=== PATIENT | female | born 1985 | race Caucasian/White ===

== ENCOUNTER 2023-01-21 19:06 | Emergency (ER) | payer OTHER, SELFPAY ==
[2023-01-21 19:11] VITALS: BP 135/95; PULSE 90; RESP 16; TEMP 36.7; O2SAT 98; BMI 30.2
--- NOTE | 2023-01-21 19:31 | ED.GENADUL1 ---
HPI - General Adult General Chief complaint: Nausea/Vomiting/Diarrhea Stated complaint: vomiting Time Seen by Provider: 01/21/23 19:20 Source: patient Mode of arrival: walk-in Limitations: no limitations History of Present Illness HPI narrative: patient is a 37-year-old female who presents to the emergency department for the evaluation of epigastric discomfort intermittently over the last six weeks associated with nausea, hot and cold chills and diaphoresis. Patient states she had significant attack last night. She denies any pain in the left or right upper quadrants but points to sharp pain in the epigastrium when this occurs. She had vomiting last night but has not had any vomiting today. She has not had any changes in her urination or bowel movements. She is not concerned for . No fevers or upper respiratory symptoms. She is not able to see her doctor for another three weeks. Related Data Previous Rx's Medication Instructions Recorded ondansetron 4 mg disintegrating 4 mg PO Q6H PRN nausea and 01/21/23 tablet vomiting #12 tabs pantoprazole 40 mg tablet,delayed 40 mg PO DAILY #7 tabs 01/21/23 release (Protonix) potassium chloride 20 mEq 20 meq PO BID #6 tabs 01/21/23 tablet,extended release sucralfate 1 gram tablet (Carafate) 1 g PO Q6H PRN abdominal pain #12 01/21/23 tabs Allergies Allergy/AdvReac Type Severity Reaction Status Date / Time ciprofloxacin [From Cipro] Allergy Unknown Verified 01/21/23 19:19 Review of Systems ROS Constitutional Denies: fever or chills Ears, nose, mouth, and throat Denies: throat pain Cardiovascular Denies: chest pain Respiratory Denies: shortness of breath or cough Gastrointestinal Reports: abdominal pain, nausea and vomiting; Denies: diarrhea Genitourinary Denies: painful urination Musculoskeletal Denies: back pain Integumentary/Breast Denies: rash Neurological Denies: headache Allergic/Immunologic Denies: hives PFSH PFS Social History Smoking status: Current every day smoker Exam Narrative Exam Narrative: Gen.: Awake, alert, in no distress Head: Normocephalic, atraumatic ENT: Moist mucous membranes Respiratory: No respiratory distress, lungs clear bilaterally Cardio: Regular rate and rhythm Gastrointestinal: Abdomen is soft, nondistended and minimally tender in the epigastrium Extremities: Moves extremities equally, no injuries noted Psych: Normal mood and affect Neuro: No focal neuro deficit Skin: Warm, dry, intact Constitutional Vital Signs, click to edit/add: Last Vital Signs Temp 98.0 F 01/21/23 19:11 Pulse 90 01/21/23 19:11 Resp 16 01/21/23 19:11 BP 135/95 H 01/21/23 19:11 Pulse Ox 98 01/21/23 19:11 O2 Del Method Room Air 01/21/23 19:11 Course Vital Signs Vital signs: Vital Signs Temperature 98.0 F 01/21/23 19:11 Pulse Rate 90 01/21/23 19:11 Respiratory Rate 16 01/21/23 19:11 Blood Pressure 135/95 H 01/21/23 19:11 Pulse Oximetry 98 01/21/23 19:11 Oxygen Delivery Method Room Air 01/21/23 19:11 Temperature 98.0 F 01/21/23 19:11 Pulse Rate 90 01/21/23 19:11 Respiratory Rate 16 01/21/23 19:11 Blood Pressure 135/95 H 01/21/23 19:11 Pulse Oximetry 98 01/21/23 19:11 Oxygen Delivery Method Room Air 01/21/23 19:11 Medical Decision Making MDM Narrative Medical decision making narrative: lab studies within normal limits although patient was noted to have a potassium of 2.7. She tolerated oral potassium without difficulty. She will be prescribed potassium for the next three days. The remainder of her labs are unremarkable, vital signs are normal. Abdomen is soft and benign. Ultrasound of the right upper quadrant was performed with no evidence of acute abdominal abnormalities. Patient will be discharged home on Protonix, Carafate, Zofran. Return to the Emergency Room if symptoms change or worsen. Medical Records Medical records reviewed: Yes I reviewed the patient's medical records Lab Data Lab results reviewed: Yes I reviewed the patient's lab results Labs: Lab Results 01/21/23 Range/Units 19:45 WBC 5.5 (4.0-11.0) 10^3/uL RBC 4.34 (4.20-5.40) 10^6/uL Hgb 12.8 (12.0-16.0) g/dL Hct 37.9 (36.0-48.0) % MCV 87.3 (81.0-99.0) fL MCH 29.5 (26.7-34.0) pg MCHC 33.8 (29.9-35.2) g/dL RDW 14.5 (11.0-15.0) % Plt Count 220 (150-450) 10^3/uL MPV 10.3 (9.5-13.5) fL Neut % (Auto) 74.3 (43.0-75.0) % Lymph % (Auto) 16.1 L (20.5-60.0) % Williamson % (Auto) 5.4 (1.7-12.0) % Eos % (Auto) 1.6 (0.9-7.0) % Baso % (Auto) 0.4 (0.2-2.0) % Neut # (Auto) 4.1 (1.4-6.5) 10^3/uL Lymph # (Auto) 0.9 L (1.2-3.8) 10^3/uL Williamson # (Auto) 0.3 (0.3-0.8) 10^3/uL Eos # (Auto) 0.1 (0.0-0.7) 10^3/uL Baso # (Auto) 0.0 (0.0-0.1) 10^3/uL Abs Immat Gran (auto) 0.12 H (0.00-0.03) 10^3/uL Imm/Tot Granulo (auto) 2.2 H (0.0-0.5) % Sodium 136 (136-145) mmol/L Potassium 2.7 L* (3.5-5.1) mmol/L Chloride 99 (98-107) mmol/L Carbon Dioxide 29.8 (21.0-32.0) mmol/L Anion Gap 9.9 BUN 12.0 (7.0-18.0) mg/dL Creatinine 0.85 (0.55-1.02) mg/dL Est GFR ( Amer) >60 (>=60) Est GFR (Non-Af Amer) >60 (>=60) BUN/Creatinine Ratio 14.1 Glucose 87 (74-106) mg/dL Lactate 1.3 (0.4-2.0) mmol/L Calcium 8.1 L (8.5-10.1) mg/dL Total Bilirubin 0.2 (0.2-1.0) mg/dL AST 13 L (15-37) U/L ALT 13 L (14-59) U/L Alkaline Phosphatase 71 (46-116) U/L Total Protein 7.1 (6.4-8.2) g/dL Albumin 3.6 (3.4-5.0) g/dL Globulin 3.5 g/dL Albumin/Globulin Ratio 1.0 Lipase 29.0 L (73.0-393.0) U/L Serum HCG, Qual Negative (NEGATIVE) Urine Color Yellow (YELLOW) Urine Clarity Clear (CLEAR) Urine pH 6.0 (5.0-9.0) Ur Specific [place] 1.020 (1.005-1.025) Urine Protein Negative (NEG/TRACE) mg/dL Urine Glucose (UA) Negative (NEGATIVE) mg/dL Urine Ketones Negative (NEGATIVE) mg/dL Urine Occult Blood Moderate A (NEGATIVE) Urine Nitrite Negative (NEGATIVE) Urine Bilirubin Negative (NEGATIVE) Urine Urobilinogen 0.2 (0.2-1.0) EU/dL Ur Leukocyte Esterase Negative (NEGATIVE) Urine RBC 0-2 (0-2) #/HPF Urine WBC 2-5 A (NONE SEEN) #/HPF Ur Squamous Epith Cells Many A (NONE/RARE) #/LPF Urine Crystals None seen (None Seen) #/HPF Urine Bacteria Small A (NONE SEEN) #/HPF Urine Casts None seen (NONE SEEN) #/LPF Urine Mucus Large A (NONE SEEN) Ur Culture Indicated? Yes Discharge Plan Discharge Chief Complaint: Nausea/Vomiting/Diarrhea Clinical Impression: Abdominal pain, Acute hypokalemia Patient Disposition: Home, Self-Care Time of Disposition Decision: 22:05 Condition: Good Prescriptions / Home Meds: New sucralfate [Carafate] 1 gram tablet 1 g PO Q6H PRN (Reason: abdominal pain) Qty: 12 0RF pantoprazole [Protonix] 40 mg tablet,delayed release (DR/EC) 40 mg PO DAILY Qty: 7 0RF ondansetron 4 mg tablet,disintegrating 4 mg PO Q6H PRN (Reason: nausea and vomiting) Qty: 12 0RF potassium chloride 20 mEq tablet extended release 20 meq PO BID Qty: 6 0RF Instructions: Hypokalemia (ED), Abdominal Pain (ED) Stand Alone Forms: Portal Instructions Referrals: Physician,Non-Staff, MD [Primary Care Provider] - 1 week
--- NOTE | 2023-01-21 19:32 | US_ITS ---
The [address] [address] Patient Name: CHRISTIAN CARBAJAL MRN: [id number] date: 1985 Sex: F Assigned Patient Location: Current Patient Location: Accession/Order Number: [id number] Exam Date: 01/21/2023 19:55 Report Date: 01/21/2023 21:03 At the request of: SANJEEV GRADY Procedure: US right upper quadrant EXAMINATION: US right upper quadrant TECHNIQUE: Limited ultrasound of the abdomen was performed. Grayscale and color flow Doppler imaging. HISTORY: abdominal pain. COMPARISON: None. FINDINGS: Liver: The liver demonstrates normal homogeneous echotexture and normal size. Gallbladder/biliary: The gallbladder is unremarkable with no gallbladder wall thickening or pericholecystic fluid. No shadowing gallstones The common extrahepatic duct diameter measures 4.5mm. There is no intra or extrahepatic biliary dilatation. There is no visualized obstructing biliary stone. Pancreas: The visualized portion of the pancreas demonstrates normal homogeneous echotexture. Right Kidney: Unremarkable with no mass lesion or hydronephrosis. Other findings: None US/US right upper quadrant IMPRESSION: No significant upper abdominal abnormality. Electronically authenticated by: BORIS LEGGETT Date: 01/21/2023 21:03
[2023-01-21] MEDS: 0.9 % SODIUM CHLORIDE 1,000 ML 999 ML IV (19:45)
[2023-01-21] MEDS: PANTOPRAZOLE SODIUM 40 MG VIAL IV (19:46)
[2023-01-21] MEDS: ONDANSETRON PF 4 MG/2 ML VIAL IV (19:46)
[2023-01-21 19:59] LABS: Bilirubin Urine NEGATIVE (NEGATIVE); Blood Urine MODERATE (NEGATIVE); Clarity Urine CLEAR (CLEAR); Color Urine YELLOW (YELLOW); Glucose Urine UA NEGATIVE (NEGATIVE); Ketones Urine NEGATIVE (NEGATIVE); Leukocyte Esterase Urine NEGATIVE (NEGATIVE); Nitrite Urine NEGATIVE (NEGATIVE); Protein Urine NEGATIVE (NEG/TRACE); Urobilinogen Urine 0.2 EU/dL (0.2-1.0)
[2023-01-21 20:00] LABS: Basophils Percent Auto 0.4 % (0.2-2.0); Eosinophils Absolute Auto 0.1 10^3/uL (0.0-0.7); Eosinophils Percent Auto 1.6 % (0.9-7.0); Hematocrit 37.9 % (36.0-48.0); Hemoglobin 12.8 g/dL (12.0-16.0); Immature Granulocytes Abs Auto 0.12 10^3/uL (0.00-0.03); Immature Granulocytes Pct Auto 2.2 % (0.0-0.5); Lymphocytes Absolute Auto 0.9 10^3/uL (1.2-3.8); Lymphocytes Percent Auto 16.1 % (20.5-60.0); Mean Corpuscular HGB Conc 33.8 g/dL (29.9-35.2); Mean Corpuscular Hemoglobin 29.5 pg (26.7-34.0); Mean Corpuscular Volume 87.3 fL (81.0-99.0); Mean Platelet Volume 10.3 fL (9.5-13.5); Monocytes Absolute Auto 0.3 10^3/uL (0.3-0.8); Monocytes Percent Auto 5.4 % (1.7-12.0); Neutrophils Absolute Auto 4.1 10^3/uL (1.4-6.5); Neutrophils Percent Auto 74.3 % (43.0-75.0); Platelet Count 220 10^3/uL (150-450); Red Blood Count 4.34 10^6/uL (4.20-5.40); Red Cell Distribution Width 14.5 % (11.0-15.0); Urine Microscopic Indicated YES; White Blood Count 5.5 10^3/uL (4.0-11.0)
[2023-01-21 20:09] LABS: Bacteria Urine SMALL #/HPF (NONE SEEN); Cast Seen? NONE SEEN #/LPF (NONE SEEN); Crystals Seen? None Seen #/HPF (None Seen); Mucus Urine LARGE (NONE SEEN); RBC Urine 0-2 #/HPF (0-2); Squamous Epithelial Cell Urine MANY #/LPF (NONE/RARE); Urine Culture Indicated YES
[2023-01-21 20:12] LABS: HCG Qualitative NEGATIVE (NEGATIVE)
[2023-01-21 20:21] LABS: Alanine Aminotransferase 13 U/L (14-59); Albumin Level 3.6 g/dL (3.4-5.0); Alkaline Phosphatase 71 U/L (46-116); Anion Gap 9.9; Aspartate Amino Transferase 13 U/L (15-37); BUN Creatinine Ratio 14.1; Bilirubin Total 0.2 mg/dL (0.2-1.0); Calcium 8.1 mg/dL (8.5-10.1); Carbon Dioxide 29.8 mmol/L (21.0-32.0); Chloride 99 mmol/L (98-107); Estimated GFR (African America >60 (>=60); Estimated GFR (Non-African Ame >60 (>=60); Globulin 3.5 g/dL; Glucose 87 mg/dL (74-106); Sodium 136 mmol/L (136-145); Total Protein 7.1 g/dL (6.4-8.2)
[2023-01-21 20:25] LABS: Lactate/Lactic Acid 1.3 mmol/L (0.4-2.0)
[2023-01-21 20:26] LABS: Potassium 2.7 mmol/L (3.5-5.1)
[2023-01-21] MEDS: POTASSIUM CHLORIDE 10 MEQ ER TABLET 40 MEQ PO (20:46)
== END 2023-01-21 22:43 | disposition home or self-care (01) ==
PROVIDERS: Physician Assistant; Emergency Provider Emergency Medicine
DX: E87.6 Hypokalemia (principal); R10.9 Unspecified abdominal pain; F17.210 Nicotine dependence, cigarettes, uncomplicated
CPT/HCPCS: 36415; 76705; 80053; 81001; 81003; 83605; 83690; 84703; 85025; 87086; 96361; 96374; 96375; 99285